=== PATIENT | male | born 1980 | race Two or more races ===

== ENCOUNTER 2024-03-06 23:23 | Emergency (ER) | payer MEDICAID, SELFPAY ==
[2024-03-06 23:31] VITALS: BP 153/82; PULSE 78; RESP 18; TEMP 36.9; O2SAT 96
--- NOTE | 2024-03-06 23:33 | PD.EDFEVER ---
ED Fever RME/HPI General Chief Complaint: Fever Stated Complaint: COUGH /FEVER Time Seen by Provider: 03/06/24 23:33 Arrival date/time: 03/06/24 23:23 RME / HPI RME / HPI Narrative: This section includes all my notes and documentations, including HPI, PE, and ED course. Bay Ly MD HPI: 43-year-old female here with about a week history of worsening cough, productive cough, purulent sputum, and dyspnea. With headache and fever and chills and bodyaches and malaise. No other complaints. ROS: All negative except as documented in HPI. Physical Exam: General: Alert and oriented. No acute distress when remaining still. Eyes: Conjunctivae and lids clear. ENT: No nasal congestion. Pharynx normal. TM normal bilaterally. Neck: Supple. Heart: RRR. Lungs: No respiratory distress. Good air movement with rhonchi. Abdomen: Soft and nontender. Legs: No clubbing, cyanosis, edema. Skin: Warm and dry. Neuro: Alert and oriented X 3. I reviewed all diagnostic test results. My interpretation of the chest x-ray is increased bronchial markings. COVID/influenza/strep negative. At this point, diagnoses include bronchitis Treatment here included Zofran ODT 4 mg and prednisone 60 mg and Zithromax 500 mg and two Tylenol #3. Significant improvement noted. Recommended a trial of treatment at home. Based on my best medical judgment, made decision no further evaluation or treatment indicated at this time. Patient understands and agrees to the discharge instructions customized and printed, see below. Discharge instructions from Dr. Ly: --No physical exertion for 3 days to help rest the lungs. ?-No smoking or exposure to smoking or pets or dust or cold or humidity. --Zithromax to kill the germs causing the bronchitis. --Prednisone to help decrease the swelling in the airways. --Albuterol 2 puffs every 4-6 hours today to help keep the airways open. Then as needed for cough or shortness of breath. --See a private doctor on 03/10/2024 if not completely better. --Seek immediate medical care with worsening or with any concerns. Related Data Home Medications ?Medication ?Instructions ?Recorded ?Confirmed silodosin 8 mg capsule (Rapaflo) 8 mg PO QDAY 11/21/21 10/29/23 Previous Rx's ?Medication ?Instructions ?Recorded albuterol sulfate 90 mcg/actuation 2 inh inhalation QID PRN shortness 03/07/24 aerosol inhaler of breath or wheezing #8.5 grams azithromycin 500 mg tablet 500 mg PO QDAY 3 days #3 tabs 03/07/24 (Zithromax TRI-GUERA) prednisone 20 mg tablet 40 mg PO DAILY 3 days #6 tabs 03/07/24 Allergies Allergy/AdvReac Type Severity Reaction Status Date / Time No Known Allergies Allergy Verified 10/29/23 13:54 Review of Systems Review of Systems Systems Reviewed: All systems reviewed, normal except as documented Past Medical History Past Medical History NEUROLOGIC: Negative Neurological Disorders or Seizures CARDIAC: Positive Hypercholesterolemia (NO MEDS); Negative Cardiac Disorders or Congestive Heart Failure RESPIRATORY: Negative Chronic Obstructive Pulmonary Disease (COPD) or Asthma GASTROINTESTINAL: Negative Gastrointestinal Disorders or Hiatal Hernia GENITOURINARY: Positive Kidney Stones; Negative Genitourinary Disorders or Renal Disease MUSCULOSKELETAL: Positive Musculoskeletal Disorders ENDOCRINE: Negative Endocrine Disorders, Diabetes Mellitus Type 1 or Diabetes Mellitus Type 2 HEMATOLOGIC: Positive Blood Disorders and Anemia; Negative Sickle Cell Disease PSYCHO/SOCIAL: Negative Depression or Anxiety OTHER HISTORY: Positive Hospitalization (FOLLICULAR LYMPHOMA ABDOMEN) and Cancer (FOLLICULAR LYMPHOMA ABDOMEN); Negative Autoimmune Disease, Blood Transfusions, Blood Transfusion Reaction or Anesthesia Reactions Family History FAMILY HISTORY: Positive Family Cancer (MATERNAL(STOMACH,BREAST) AND PATERNAL(PROSTATE)); Negative Family Cardiac Disorders Surgical History SURGICAL: Positive Joint Replacement Social History SMOKING STATUS: Never smoker Physical Exam Narrative Physical exam: As noted in HPI. Course Course Course Narrative: CXR is ordered for determining the etiology of fever. Quality Measures none Orders Category Date Time Status Bedside COVID-19 Antigen Test NOW Care 03/06/24 23:37 Completed Bedside Influenza A&B Antigen Test NOW Care 03/06/24 23:37 Completed XR chest 1V portable Stat Exams 03/07/24 00:01 Taken Strep A Rapid Stat Lab 03/06/24 23:41 Completed ACETAMINOPHEN w/COD 300-30 [Tylenol w/Cod #3] Med 03/06/24 23:37 Discontinued 2 tab PO X1 ONE Azithromycin Po [Zithromax PO] Med 03/07/24 01:03 Discontinued 500 mg PO X1 ONE Ondansetron Odt [Zofran Odt] Med 03/06/24 23:37 Discontinued 4 mg PO X1 ONE predniSONE Med 03/06/24 23:37 Discontinued 60 mg PO X1 ONE Vital Signs Vital signs: Vital Signs Temperature 98.4 F 03/06/24 23:31 Pulse Rate 78 03/06/24 23:31 Respiratory Rate 18 03/06/24 23:31 Blood Pressure 153/82 H 03/06/24 23:31 Pulse Oximetry (%) 96 03/06/24 23:31 Oxygen Delivery Method Room Air 03/06/24 23:31 Fever Patient data External records reviewed:: [facility] previous records (Per chart review, patient was seen here on 03/08/21 for a back contusion.) Clinical information provided by:: patient Social determinants that could affect healthcare access:: none Patient has the following chronic illnesses:: HLD, anemia How is presenting disease/condition affected by chronic disease/condition?: uneffected by Evaluation data The following diagnostics were reviewed and interpreted by me:: lab results and radiology exam(s) Lab and/or radiology exams considered but not ordered:: none Interpretation Summary: Bronchitis Medications / Prescriptions Medications or Prescriptions considered but not ordered:: none Medication administrations:: Medication Administration History Discontinued Medications Acetaminophen/Codeine Phosphate (Acetaminophen W/Cod 300-30 Tablet) 2 tab PO X1 ONE Stop: 03/06/24 23:38 Last Admin: 03/06/24 23:46 Dose: 2 tab Documented By: MANOJ Azithromycin (Azithromycin 250 Mg Tablet) 500 mg PO X1 ONE Stop: 03/07/24 01:04 Last Admin: 03/07/24 01:09 Dose: 500 mg Documented By: ALICIA Ondansetron HCl (Ondansetron Odt 4 Mg Tabrap) 4 mg PO X1 ONE; Protocol Stop: 03/06/24 23:38 Last Admin: 03/06/24 23:47 Dose: 4 mg Documented By: MANOJ Prednisone (Prednisone 20 Mg Tablet) 60 mg PO X1 ONE Stop: 03/06/24 23:38 Last Admin: 03/06/24 23:46 Dose: 60 mg Documented By: MANOJ See chart Consultations Consultation(s) initiated? (list below): No Diagnosis Fever Differential Diagnosis: community acquired pneumonia, viral infection, influenza and other (COVID, Strep, bronchitis) Most likely diagnosis given after review of the tests above:: bronchitis Admission Indicated Admission indicated?: not indicated Explain why admission is indicated or not indicated:: Admission criteria not met Admission Request Was there a request for admission?: No Disposition Plan Disposition Plan: Discharge Discharge Attestation Discharge Attestation: The patient and all family members were given an opportunity to ask questions and understood the discharge instructions. Discharge instructions specifically effects, indications for sooner follow up or return to the emergency department, and the expected course of current diagnosis. Patient condition: Stable Discharge Plan Plan Patient Disposition: HOME (Self Care) Prescriptions/Referrals Prescriptions/Med Rec: New prednisone 20 mg tablet 40 mg PO DAILY 3 Days Qty: 6 0RF Taper: Prednisone Taper 20 mg DAILY for 2 Days and 0 Hour 10 mg DAILY for 2 Days and 0 Hour 5 mg DAILY for 7 Days and 0 Hour albuterol sulfate 90 mcg/actuation HFA aerosol inhaler 2 inh inhalation QID PRN (Reason: shortness of breath or wheezing) Qty: 8.5 0RF azithromycin [Zithromax TRI-GUERA] 500 mg tablet 500 mg PO QDAY 3 Days Qty: 3 0RF No Action silodosin [Rapaflo] 8 mg capsule 8 mg PO QDAY Rx Instructions: must administer with a meal/food Referrals: Temporary Provider,ED [Physician] - In 1 week Problem List Clinical Impression: Bronchitis Patient/Caregiver Discharge Instructions Discharge Activity: activity as tolerated Education Materials: ED Bronchitis with Wheezing (Adult) Additional Instructions: Discharge instructions from Dr. Ly: --No physical exertion for 3 days to help rest the lungs. ?-No smoking or exposure to smoking or pets or dust or cold or humidity. --Zithromax to kill the germs causing the bronchitis. --Prednisone to help decrease the swelling in the airways. --Albuterol 2 puffs every 4-6 hours today to help keep the airways open. Then as needed for cough or shortness of breath. --See a private doctor on 03/10/2024 if not completely better. --Seek immediate medical care with worsening or with any concerns. Instrucciones de lizzy del Dr. Ly: --No hacer jose m?n esfuerzo f?sico mary 3 d?as para ayudar a que los pulmones descansen. --No fumar ni exponerse al humo del tabaco, a las mascotas, al polvo, al fr?o o a la humedad. --Zithromax para matar los g?rmenes que causan la bronquitis. --Prednisona para ayudar a disminuir la hinchaz?n de las v?as respiratorias. --Albuterol 2 inhalaciones cada 4 a 6 horas hoy para ayudar a mantener abiertas las v?as respiratorias. Luego, seg?n sea necesario para la tos o la falta de aire. --Consulte a un m?dico privado el 10/03/2024 si no mejora por completo. --Busque atenci?n m?dica inmediata si la enfermedad empeora o tiene alguna inquietud. Print Language: Swazi Stand Alone Forms: Kelly Award Info., Patient Portal Info Letter
[2024-03-06] MEDS: ACETAMINOPHEN w/COD 300-30 TABLET 2 TAB PO (23:46)
[2024-03-06] MEDS: predniSONE 20 MG TABLET 60 MG PO (23:46)
[2024-03-06] MEDS: ONDANSETRON ODT 4 MG TABRAP PO (23:47)
--- NOTE | 2024-03-07 00:01 | XR_ITS ---
Examination: PA chest single view Technique: Upright PA chest single view Exam date and time: March 07, 2024 0013 hrs. Comparison November 04, 2023 Indications: Coughing shortness of breath beginning 2 days ago. Findings: Normal heart size No lobar pneumonia or pulmonary edema. Right subclavian Port-A-Cath tip SVC satisfactory position Impression: No pneumonia identified
[2024-03-07 00:12] LABS: Strep A Rapid Negative (Negative)
[2024-03-07] MEDS: AZITHROMYCIN 250 MG TABLET 500 MG PO (01:09)
== END 2024-03-07 01:15 | disposition home or self-care (01) ==
PROVIDERS: Emergency Provider Emergency Medicine; PCP Nurse Practitioner Family
DX: J40 Bronchitis, not specified as acute or chronic (principal)
CPT/HCPCS: 71045; 87400; 87651; 87811; 99283; J7512; Q0162; A9270

== ENCOUNTER → 2024-05-05 | Outpatient (CLI) | payer MEDICAID, SELFPAY ==
[2024-05-05 17:49] LABS: Basophils % (Auto) 1 % (0-2.5); Eosinophils # (Auto) 0.2 Thou/mm3 (0.0-0.5); Eosinophils % (Auto) 4 % (0-10); Hematocrit 43.3 % (41.0-53.0); Hemoglobin 14.9 g/dL (13.5-16.0); Immature Granulocytes % (Auto) 1 % (0-0); Immature Granulocytes Auto 0.04 Thou/mm3 (0.00-0.00); Lymphocytes # (Auto) 1.1 Thou/mm3 (1.0-4.8); Lymphocytes % (Auto) 19 % (10-50); Mean Corpuscular HGB Conc 34.4 g/dl (31.0-37.0); Mean Corpuscular Volume 84 fL (80-100); Monocytes # (Auto) 0.3 Thou/mm3 (0.0-0.8); Monocytes % (Auto) 5 % (0-12); Neutrophils # (Auto) 4.1 Thou/mm3 (1.8-7.7); Neutrophils % (Auto) 71 % (37-80); Nucleated Red Blood Cell % 0 /100 WBC (0); Platelet Count 212 Thou/mm3 (140-440); RDW Standard Deviation 39.1 fL (35.1-43.9); Red Blood Count 5.14 Miln/mm3 (4.50-5.90); White Blood Count 5.7 Thou/mm3 (3.8-10.6)
[2024-05-05 18:12] LABS: Alanine Aminotransferase 50 U/L (10-49); Albumin, Serum 4.1 gm/dL (3.5-5.0); Albumin/Globulin Ratio 1.6 (1.2-2.2); Alkaline Phosphatase 75 U/L (46-116); Anion Gap 7 (7-16); Aspartate Amino Transferase 23 U/L (0-34); BUN/Creatinine Ratio 11 Ratio (12-20); Bilirubin,Total 0.5 mg/dL (0.3-1.2); Blood Urea Nitrogen 9 mg/dL (9-23); Calcium 9.4 mg/dL (8.3-10.6); Calcium (Corrected) 9.4 mg/dL (8.5-10.1); Carbon Dioxide 31.6 mMol/L (20.0-31.0); Chloride 100 mMol/L (98-107); Creatinine (Component) 0.8 mg/dL (0.6-1.3); Globulin 2.5 gm/dL (2.3-3.5); Glucose 257 mg/dL (74-106); LDH (Lactate Dehydrogenase) 181 U/L (120-246); Osmolality,Calculated 285 (275-295); Potassium 3.8 mMol/L (3.4-5.1); Sodium 139 mMol/L (136-145); Total Protein 6.6 gm/dL (5.7-8.2); eGFR > 60 See Note
[2024-05-05 18:14] LABS: Sed Rate (ESR) 5 mm/hr (0-15)
== END | disposition home or self-care (01) ==
LOC: SCTO 16:20
PROVIDERS: PCP Obstetrics & Gynecology; Referring Provider Nurse Practitioner Family; Visit Provider Nurse Practitioner Family
DX: C82.93 Follicular lymphoma, unspecified, intra-abdominal lymph nodes (principal)
CPT/HCPCS: 36415; 80053; 83615; 85025; 85652

== ENCOUNTER 2024-05-15 13:02 | Outpatient (RCR) | payer MEDICAID, SELFPAY | END 2024-06-12 23:59 | disposition home or self-care (01) | LOC: SCTC 13:02 | PROVIDERS: PCP Obstetrics & Gynecology; Referring Provider Obstetrics & Gynecology; Visit Provider Nurse Practitioner Family | DX: Z08 Encounter for follow-up examination after completed treatment for malignant neoplasm (principal); Z85.72 Personal history of non-Hodgkin lymphomas; Z92.21 Personal history of antineoplastic chemotherapy | CPT/HCPCS: 99212; G0463 ==

== ENCOUNTER → 2024-07-25 | Outpatient (BNVA) | payer MEDICAID, SELFPAY | END | disposition home or self-care (01) | PROVIDERS: PCP Obstetrics & Gynecology; Referring Provider Obstetrics & Gynecology; Visit Provider Urology | DX: N40.1 Benign prostatic hyperplasia with lower urinary tract symptoms (principal); N13.8 Other obstructive and reflux uropathy; N20.0 Calculus of kidney; C82.93 Follicular lymphoma, unspecified, intra-abdominal lymph nodes; R73.03 Prediabetes; E66.01 Morbid (severe) obesity due to excess calories; Z68.37 Body mass index [BMI] 37.0-37.9, adult; E78.00 Pure hypercholesterolemia, unspecified | CPT/HCPCS: 81003; 99212; 99213; G0463 ==

== ENCOUNTER → 2024-09-21 | Outpatient (CLI) | payer MEDICAID, SELFPAY ==
[2024-09-21 16:39] LABS: Basophils # (Auto) 0.0 Thou/mm3 (0.0-0.2); Basophils % (Auto) 1 % (0-2.5); Eosinophils # (Auto) 0.3 Thou/mm3 (0.0-0.5); Eosinophils % (Auto) 4 % (0-10); Hematocrit 45.4 % (41.0-53.0); Hemoglobin 15.4 g/dL (13.5-16.0); Immature Granulocytes Auto 0.05 Thou/mm3 (0.00-0.00); Lymphocytes # (Auto) 1.2 Thou/mm3 (1.0-4.8); Lymphocytes % (Auto) 16 % (10-50); Mean Corpuscular HGB Conc 33.9 g/dl (31.0-37.0); Mean Corpuscular Hemoglobin 29.5 pg (25.0-35.0); Mean Corpuscular Volume 87 fL (80-100); Monocytes # (Auto) 0.5 Thou/mm3 (0.0-0.8); Monocytes % (Auto) 7 % (0-12); Neutrophils # (Auto) 5.2 Thou/mm3 (1.8-7.7); Neutrophils % (Auto) 72 % (37-80); Nucleated Red Blood Cell # 0.00 Thou/mm3 (0.00-0.00); Nucleated Red Blood Cell % 0 /100 WBC (0); Platelet Count 223 Thou/mm3 (140-440); RDW Standard Deviation 40.5 fL (35.1-43.9); Red Blood Count 5.22 Miln/mm3 (4.50-5.90); White Blood Count 7.2 Thou/mm3 (3.8-10.6)
[2024-09-21 16:45] LABS: Alanine Aminotransferase 42 U/L (10-49); Albumin, Serum 4.4 gm/dL (3.5-5.0); Albumin/Globulin Ratio 1.6 (1.2-2.2); Alkaline Phosphatase 68 U/L (46-116); Anion Gap 10 (7-16); Aspartate Amino Transferase 24 U/L (0-34); BUN/Creatinine Ratio 13 Ratio (12-20); Bilirubin,Total 0.6 mg/dL (0.3-1.2); Blood Urea Nitrogen 10 mg/dL (9-23); Calcium 9.4 mg/dL (8.3-10.6); Calcium (Corrected) 9.4 mg/dL (8.5-10.1); Carbon Dioxide 30.3 mMol/L (20.0-31.0); Chloride 103 mMol/L (98-107); Creatinine (Component) 0.8 mg/dL (0.6-1.3); Globulin 2.7 gm/dL (2.3-3.5); Glucose 155 mg/dL (74-106); LDH (Lactate Dehydrogenase) 165 U/L (120-246); Osmolality,Calculated 286 (275-295); Potassium 3.9 mMol/L (3.4-5.1); Sodium 143 mMol/L (136-145); Total Protein 7.1 gm/dL (5.7-8.2); eGFR > 60 See Note
[2024-09-21 17:05] LABS: Sed Rate (ESR) 5 mm/hr (0-15)
== END | disposition home or self-care (01) ==
LOC: SCTO 14:43
PROVIDERS: PCP Family Medicine; Referring Provider Nurse Practitioner Family; Visit Provider Nurse Practitioner Family
DX: C82.93 Follicular lymphoma, unspecified, intra-abdominal lymph nodes (principal)
CPT/HCPCS: 36415; 80053; 83615; 85025; 85652

== ENCOUNTER 2024-09-28 14:25 | Outpatient (RCR) | payer MEDICAID, SELFPAY | END 2024-10-12 23:59 | disposition home or self-care (01) | LOC: SCTC 14:25 | PROVIDERS: PCP Obstetrics & Gynecology; Referring Provider Obstetrics & Gynecology; Visit Provider Nurse Practitioner Family | DX: C82.13 Follicular lymphoma grade II, intra-abdominal lymph nodes (principal); M25.512 Pain in left shoulder; M51.369 Other intervertebral disc degeneration, lumbar region without mention of lumbar back pain or lower extremity pain; M51.34 Other intervertebral disc degeneration, thoracic region; E66.9 Obesity, unspecified; Z68.36 Body mass index [BMI] 36.0-36.9, adult | CPT/HCPCS: 99212; G0463 ==

== ENCOUNTER → 2024-10-30 | Outpatient (CLI) | payer MEDICAID, SELFPAY ==
--- NOTE | 2024-10-30 12:27 | XR_ITS ---
Examination: Shoulder,left, 3 views Technique: Shoulder AP internal rotation, AP external rotation, Y view shoulder, 3 views Exam date and time :December 30, 2024 1310 hours INDICATIONS: Diagnosis follicular lymphoma left shoulder diagnosed 9 years ago FINDINGS: Moderate osteopenia. No fracture or dislocation No osteolytic or osteoblastic lesion IMPRESSION: No current osteolytic or osteoblastic lesion
== END | disposition home or self-care (01) ==
PROVIDERS: PCP Nurse Practitioner Family; Referring Provider Nurse Practitioner Family; Visit Provider Nurse Practitioner Family
DX: C82.93 Follicular lymphoma, unspecified, intra-abdominal lymph nodes (principal)
CPT/HCPCS: 73030

== ENCOUNTER 2024-11-02 13:12 | Outpatient (RCR) | payer MEDICAID, SELFPAY | END 2024-11-12 23:59 | disposition home or self-care (01) | LOC: SCTC 13:12 | PROVIDERS: PCP Obstetrics & Gynecology; Referring Provider Obstetrics & Gynecology; Visit Provider Nurse Practitioner Family | DX: C82.13 Follicular lymphoma grade II, intra-abdominal lymph nodes (principal); Z92.21 Personal history of antineoplastic chemotherapy; M51.360 Other intervertebral disc degeneration, lumbar region with discogenic back pain only; M51.34 Other intervertebral disc degeneration, thoracic region; E66.9 Obesity, unspecified; Z68.36 Body mass index [BMI] 36.0-36.9, adult; M85.812 Other specified disorders of bone density and structure, left shoulder | CPT/HCPCS: 99212; G0463 ==

== ENCOUNTER 2025-02-06 15:00 | Outpatient (RCR) | payer MEDICAID, SELFPAY ==
[2025-01-30 14:16] LABS: Basophils # (Auto) 0.0 Thou/mm3 (0.0-0.2); Basophils % (Auto) 1 % (0-2.5); Eosinophils # (Auto) 0.2 Thou/mm3 (0.0-0.5); Eosinophils % (Auto) 3 % (0-10); Hematocrit 43.5 % (41.0-53.0); Hemoglobin 14.8 g/dL (13.5-16.0); Immature Granulocytes Auto 0.03 Thou/mm3 (0.00-0.00); Lymphocytes # (Auto) 1.0 Thou/mm3 (1.0-4.8); Lymphocytes % (Auto) 16 % (10-50); Mean Corpuscular HGB Conc 34.0 g/dl (31.0-37.0); Mean Corpuscular Hemoglobin 29.5 pg (25.0-35.0); Mean Corpuscular Volume 87 fL (80-100); Monocytes # (Auto) 0.5 Thou/mm3 (0.0-0.8); Monocytes % (Auto) 8 % (0-12); Neutrophils # (Auto) 4.8 Thou/mm3 (1.8-7.7); Neutrophils % (Auto) 73 % (37-80); Nucleated Red Blood Cell # 0.00 Thou/mm3 (0.00-0.00); Nucleated Red Blood Cell % 0 /100 WBC (0); Platelet Count 211 Thou/mm3 (140-440); RDW Standard Deviation 40.1 fL (35.1-43.9); Red Blood Count 5.02 Miln/mm3 (4.50-5.90); White Blood Count 6.6 Thou/mm3 (3.8-10.6)
[2025-01-30 14:29] LABS: Alanine Aminotransferase 49 U/L (10-49); Albumin, Serum 4.8 gm/dL (3.5-5.0); Albumin/Globulin Ratio 2.4 (1.2-2.2); Alkaline Phosphatase 64 U/L (46-116); Anion Gap 8 (7-16); Aspartate Amino Transferase 32 U/L (0-34); BUN/Creatinine Ratio 8 Ratio (12-20); Bilirubin,Total 0.5 mg/dL (0.3-1.2); Blood Urea Nitrogen 6 mg/dL (9-23); Calcium 9.1 mg/dL (8.3-10.6); Calcium (Corrected) 9.1 mg/dL (8.5-10.1); Carbon Dioxide 29.4 mMol/L (20.0-31.0); Chloride 105 mMol/L (98-107); Creatinine (Component) 0.8 mg/dL (0.6-1.3); Globulin 2.0 gm/dL (2.3-3.5); Glucose 121 mg/dL (74-106); LDH (Lactate Dehydrogenase) 283 U/L (120-246); Osmolality,Calculated 281 (275-295); Potassium 4.6 mMol/L (3.4-5.1); Sodium 142 mMol/L (136-145); Total Protein 6.8 gm/dL (5.7-8.2); eGFR > 60 See Note
[2025-01-30 14:37] LABS: Sed Rate (ESR) 6 mm/hr (0-15)
== END 2025-02-11 23:59 | disposition home or self-care (01) ==
LOC: SCTC 15:00
PROVIDERS: PCP Obstetrics & Gynecology; Referring Provider Nurse Practitioner Family; Visit Provider Nurse Practitioner Family
DX: C82.13 Follicular lymphoma grade II, intra-abdominal lymph nodes (principal); Z92.21 Personal history of antineoplastic chemotherapy; G89.29 Other chronic pain; M54.9 Dorsalgia, unspecified; M85.80 Other specified disorders of bone density and structure, unspecified site; M85.812 Other specified disorders of bone density and structure, left shoulder; E66.9 Obesity, unspecified; Z68.36 Body mass index [BMI] 36.0-36.9, adult
CPT/HCPCS: 36591; 80053; 83615; 85025; 85652; 96365; 96374; 96523; 99212; A4216; J1642; J2997; G0463

== ENCOUNTER → 2025-02-19 | Outpatient (CLI) | payer MEDICAID, SELFPAY ==
--- NOTE | 2025-02-19 10:00 | XR_ITS ---
Examination: CT chest with intravenous contrast CT abdomen with intravenous contrast CT pelvis with intravenous contrast 2-D coronal and sagittal reconstructions Time of exam: February,, 1117 hours INDICATIONS: Diagnosis follicular lymphoma intra-abdominal, restaging thanks CTDI: vol (mGy) : 23.1 DLP: (mGycm): 1927 Technique: Multiple axial images of the chest, abdomen and pelvis with intravenous contrast, 3.0 mm slice thickness. Images obtained post intravenous injection Isovue 370 60 cc. 2-D sagittal and coronal reconstructions. Low dose protocols were performed. One or more of the following dose reduction techniques were used; automated exposure control, adjustment of the mA and/or KV according to patient size, use of iterative reconstruction technique. Findings: No thoracic aortic aneurysm dilatation No pulmonary artery filling defects No paratracheal tracheobronchial or bronchopulmonary adenopathy. 3 mm pulmonary nodule right midlung No pneumonia or pulmonary edema No interval liver or splenic lesion, splenomegaly 15 cm No gallstones No pancreatic or adrenal mass No hydronephrosis Currently no significant abdominal or pelvic lymphadenopathy Normal appendix No bowel obstruction Colonic diverticulosis, no diverticulitis Bladder intact No prostatomegaly Moderate osteopenia IMPRESSION: No mediastinal lymphadenopathy Splenomegaly, 15 cm No abdominal or pelvic lymphadenopathy currently identified
== END | disposition home or self-care (01) ==
PROVIDERS: PCP Obstetrics & Gynecology; Referring Provider Nurse Practitioner Family; Visit Provider Nurse Practitioner Family
DX: R16.1 Splenomegaly, not elsewhere classified (principal); C82.93 Follicular lymphoma, unspecified, intra-abdominal lymph nodes
CPT/HCPCS: 71270; 74178; A4649; Q9967

== ENCOUNTER 2025-03-12 13:11 | Outpatient (RCR) | payer MEDICAID, SELFPAY ==
[2025-03-12 14:07] LABS: Basophils # (Auto) 0.0 Thou/mm3 (0.0-0.2); Basophils % (Auto) 1 % (0-2.5); Eosinophils # (Auto) 0.3 Thou/mm3 (0.0-0.5); Eosinophils % (Auto) 4 % (0-10); Hematocrit 47.6 % (41.0-53.0); Hemoglobin 15.9 g/dL (13.5-16.0); Immature Granulocytes Auto 0.04 Thou/mm3 (0.00-0.00); Lymphocytes # (Auto) 1.1 Thou/mm3 (1.0-4.8); Lymphocytes % (Auto) 16 % (10-50); Mean Corpuscular HGB Conc 33.4 g/dl (31.0-37.0); Mean Corpuscular Hemoglobin 29.2 pg (25.0-35.0); Mean Corpuscular Volume 87 fL (80-100); Monocytes # (Auto) 0.5 Thou/mm3 (0.0-0.8); Monocytes % (Auto) 8 % (0-12); Neutrophils # (Auto) 4.7 Thou/mm3 (1.8-7.7); Neutrophils % (Auto) 71 % (37-80); Nucleated Red Blood Cell # 0.00 Thou/mm3 (0.00-0.00); Nucleated Red Blood Cell % 0 /100 WBC (0); Platelet Count 214 Thou/mm3 (140-440); RDW Standard Deviation 40.8 fL (35.1-43.9); Red Blood Count 5.45 Miln/mm3 (4.50-5.90); White Blood Count 6.7 Thou/mm3 (3.8-10.6)
[2025-03-12 14:11] LABS: Sed Rate (ESR) 11 mm/hr (0-15)
[2025-03-12 14:39] LABS: Alanine Aminotransferase 35 U/L (10-49); Albumin, Serum 4.9 gm/dL (3.5-5.0); Albumin/Globulin Ratio 1.7 (1.2-2.2); Alkaline Phosphatase 68 U/L (46-116); Anion Gap 9 (7-16); Aspartate Amino Transferase 18 U/L (0-34); BUN/Creatinine Ratio 13 Ratio (12-20); Bilirubin,Total 0.4 mg/dL (0.3-1.2); Blood Urea Nitrogen 12 mg/dL (9-23); Calcium 9.4 mg/dL (8.3-10.6); Calcium (Corrected) 9.4 mg/dL (8.5-10.1); Carbon Dioxide 29.2 mMol/L (20.0-31.0); Chloride 103 mMol/L (98-107); Creatinine (Component) 0.9 mg/dL (0.6-1.3); Globulin 2.9 gm/dL (2.3-3.5); Glucose 132 mg/dL (74-106); LDH (Lactate Dehydrogenase) 165 U/L (120-246); Osmolality,Calculated 282 (275-295); Potassium 3.9 mMol/L (3.4-5.1); Sodium 141 mMol/L (136-145); Total Protein 7.8 gm/dL (5.7-8.2); Uric Acid 6.4 mg/dL (3.7-9.2); eGFR > 60 See Note
== END 2025-03-14 23:59 | disposition home or self-care (01) ==
LOC: SCTC 13:11
PROVIDERS: Internal Medicine Hematology & Oncology; PCP Obstetrics & Gynecology; Referring Provider Obstetrics & Gynecology; Visit Provider Nurse Practitioner Family
DX: C82.13 Follicular lymphoma grade II, intra-abdominal lymph nodes (principal); Z92.21 Personal history of antineoplastic chemotherapy; G89.29 Other chronic pain; M54.9 Dorsalgia, unspecified; M85.819 Other specified disorders of bone density and structure, unspecified shoulder; E66.9 Obesity, unspecified; Z68.35 Body mass index [BMI] 35.0-35.9, adult
CPT/HCPCS: 36415; 80053; 83615; 84550; 85025; 85652; 96523